=== PATIENT | female | born 1950 | race Caucasian/White ===

== ENCOUNTER 2024-05-26 19:49 | Emergency (ER) | payer OTHER, MEDICAID ==
[~2024-05-26] VITALS: Ht 152.4 cm; Wt 50.3 kg
[2024-05-26 19:54] VITALS: BP 180/56; PULSE 74; RESP 16; TEMP 97.2; O2SAT 98
[2024-05-26] MEDS: ONDANSETRON 4 MG ODT PO ONE (21:00)
[2024-05-26] MEDS: MECLIZINE 25 MG TAB PO ONE (21:02)
[2024-05-26] MEDS: diazePAM 5 MG TAB PO ONE (22:06)
[2024-05-26] MEDS ORDERED: ONDA8TAB87 PO (23:07)
[2024-05-26] MEDS ORDERED: DIAZ-950 PO (23:07)
[2024-05-26 23:50] VITALS: BP 182/74
== END 2024-05-26 23:50 | disposition home or self-care (01) ==
LOC: MED 19:49
DX: R42 Dizziness and giddiness (principal); R11.2 Nausea with vomiting, unspecified; R55 Syncope and collapse; I12.0 Hypertensive chronic kidney disease with stage 5 chronic kidney disease or end stage renal disease; N18.6 End stage renal disease; Z99.2 Dependence on renal dialysis
CPT/HCPCS: 99284; J8597; Q0162